=== PATIENT | female | born 1980 ===

== ENCOUNTER 2017-03-25 18:24 | Emergency (ER) | payer MEDICAID, OTHER ==
[2017-03-25] MEDS ORDERED: SODIUM CHLORIDE 0.9% 1,000 ML ONE (19:10)
[2017-03-25] MEDS ORDERED: ACETAMINOPHEN 325 MG TABLET ONE (19:10)
[2017-03-25] MEDS ORDERED: MECLIZINE HCL 25 MG TABLET ONE (19:10)
[2017-03-25 19:26] LABS: ABSOLUTE NEUTROPHIL COUNT 4.5 K/mm3 (1.8-7.7); BASO % 0.5 % (0.2-1.0); EOS # 0.1 (0.0-0.5); EOS % 1.1 % (0.9-2.9); HEMATOCRIT 37.5 % (37.0-47.0); HEMOGLOBIN 12.2 gm/l (12.0-16.0); IMM NEUT% 0.2 % (0-1); LYMPH % 37.6 % (15-45); MEAN CELL VOLUME 86.8 fl (81.0-99.0); MEAN CORPUSCULAR HEMOGLOBIN 28.2 pg (27.0-31.0); MEAN CORPUSCULAR HGB CONC 32.5 g/dl (33.0-37.0); MEAN PLATELET VOLUME 12.2 fl (7.4-10.4); MONO # 0.4 (0.0-0.8); MONO % 5.1 % (4-12); NEUT % 55.5 % (43-75); PLATELET COUNT 129 K/mm3 (130-400); RED CELL DISTRIBUTION WIDTH 13.2 % (11.5-14.5)
[2017-03-25 19:29] LABS: URINE BILIRUBIN NEGATIVE (NEGATIVE); URINE BLOOD 1+ (NEGATIVE); URINE GLUCOSE (UA) NEGATIVE (NEGATIVE); URINE LEUKOCYTE ESTERASE TRACE (NEGATIVE); URINE NITRITE NEGATIVE (NEGATIVE); URINE PROTEIN NEGATIVE (NEGATIVE); URINE UROBILINOGEN NORMAL (0-1 mg/dl)
[2017-03-25 19:30] LABS: URINE APPEARANCE CLEAR; URINE COLOR YELLOW
[2017-03-25 19:40] LABS: ALB/GLOB RATIO 1.3 (>1.0); ALBUMIN 4.1 gm/dL (3.5-5.7); CALCIUM 8.9 mg/dL (8.6-10.3)
[2017-03-25 19:46] LABS: URINE BACTERIA 2+; URINE RBC 0 /hpf
[2017-03-25 19:51] LABS: AMPHETAMINES/METHAMPHETAMINES NEGATIVE (NEGATIVE); COCAINE NEGATIVE (NEGATIVE); MARIJUANA NEGATIVE (NEGATIVE); METHADONE NEGATIVE (NEGATIVE); OPIATES NEGATIVE (NEGATIVE); TRICYCLIC ANTIDEPRESSANTS NEGATIVE (NEGATIVE)
[2017-03-25] MEDS ORDERED: KETOROLAC TROMETHAMINE 15 MG/ML VIAL ONE (20:53)
== END 2017-03-25 21:23 | disposition home or self-care (01) ==
LOC: ED 18:24
DX: R51 Headache (principal); R42 Dizziness and giddiness; M79.1 Myalgia; R11.0 Nausea
CPT/HCPCS: 84703; 85025; 80305; 80053; 80307; 81001; 99283 ×2; 96374; 96361 ×2; A9270 ×2; J1885; J7030